=== PATIENT | female | born 1990 | race Caucasian/White ===

== ENCOUNTER 2017-07-22 22:11 | Emergency (ER) | payer BC, MEDICAID ==
[~2017-07-22] VITALS: Ht 165.1 cm; Wt 91.0 kg
[~2017-07-22 22:11] MED LIST: DOCU-131 PO; HYDR-3240 PO; HYDR1TAB12 PO; IBUP-1222 PO; NORE0.3515 PO; PREN1TAB60 PO
[2017-07-22 22:13] VITALS: BP 111/76
[2017-07-22] MEDS ORDERED: IBUPROFEN 200 MG TABLET PO ONE (23:30)
[2017-07-22] MEDS ORDERED: IBUPROFEN 200 MG TABLET ONE (23:43)
== END 2017-07-22 23:49 | disposition home or self-care (01) ==
LOC: ED 23:30
DX: S93.492A Sprain of other ligament of left ankle, initial encounter (principal); Y93.44 Activity, trampolining; Y92.89 Other specified places as the place of occurrence of the external cause; Y99.8 Other external cause status; X50.1XXA Overexertion from prolonged static or awkward postures, initial encounter
CPT/HCPCS: 99284

== ENCOUNTER → 2018-01-20 | Outpatient (CLI) | payer BC, MEDICAID | END | disposition home or self-care (01) | LOC: CFH 11:51 | PROVIDERS: ATTEND Nurse Practitioner | DX: N63.20 Unspecified lump in the left breast, unspecified quadrant (principal); N63.10 Unspecified lump in the right breast, unspecified quadrant | CPT/HCPCS: 76642 ==

== ENCOUNTER 2020-05-07 13:05 | Outpatient (CLI) | payer MEDICAID ==
[~2020-05-07 13:05] MED LIST changes: +HYDR-1067 PO; -HYDR-3240 PO; -HYDR1TAB12 PO; +HYDR1TAB13 PO
== END 2020-05-07 23:59 | disposition home or self-care (01) ==
LOC: RAD 13:05
PROVIDERS: ATTEND Nurse Practitioner Family
DX: M79.671 Pain in right foot (principal)